=== PATIENT | male | born 1940 | race Caucasian/White ===

== ENCOUNTER → 2016-07-08 | Outpatient (CLI) | payer OTHER ==
[2016-07-08 08:20] LABS: HEMATOCRIT 39.8 % (42.0-52.0); HEMOGLOBIN 13.7 g/dL (14.0-18.0); MEAN CORPUSCULAR HEMOGLOBIN 32.9 PG (27-31); MEAN CORPUSCULAR HGB CONC 34.4 g/dL (33-37); MEAN PLATELET VOLUME 8.7 FL (7.4-12.2); RDW COEFFICIENT OF VARIATION 12.1 % (11.5-14.5); RED BLOOD COUNT 4.17 10^6/uL (4.70-6.10); WHITE BLOOD COUNT 12.82 10^3/uL (4.8-10.8)
[2016-07-08 08:39] LABS: BILIRUBIN,TOTAL 0.3 mg/dL (0.3-1.2); BUN/CREATININE RATIO 17.14 (6-20); CALCIUM 9.9 mg/dL (8.7-10.7); CREATININE 1.4 mg/dL (0.70-1.50); LDL CHOLESTEROL,CALCULATED 85.6 mg/dL; POTASSIUM 4.4 meq/L (3.8-5.2)
== END ==
LOC: LAB 07:39
PROVIDERS: ATTEND Obstetrics & Gynecology Gynecology
DX: J44.9 Chronic obstructive pulmonary disease, unspecified (principal); E78.5 Hyperlipidemia, unspecified; M15.8 Other polyosteoarthritis; Z12.5 Encounter for screening for malignant neoplasm of prostate
CPT/HCPCS: 36415; 80053; 80061; 84443; 85027; G0103